=== PATIENT | female | born 1975 | race Caucasian/White ===

== ENCOUNTER 2018-09-22 17:26 | Inpatient (IN) ==
[2018-09-22] MEDS ORDERED: methylPREDNISolone SOD SUC 40 MG/1 ML VIAL IV STA (18:12)
[2018-09-22] MEDS ORDERED: SODIUM CHLORIDE 0.9% 1,000 ML IV STA (18:12)
[2018-09-22] MEDS ORDERED: ALBUTEROL/IPRATROPIUM 3 ML NEB RESP TX STA (18:12)
[2018-09-22 18:51] LABS: Basophils # 0.1 10*3/uL (0.0-0.2); Basophils % 0.4 % (0.0-0.8); Eosinophils # 0.1 10*3/uL (0.0-0.87); Eosinophils % 0.4 % (0.00-10.9); Hematocrit 38.1 VOL% (35.7-47.0); Hemoglobin 12.5 GM/DL (12.0-16.0); Immature Granulocytes % 2.2 %; Immature Granulocytes Absolute 0.63 #; Lymphocytes # 1.1 10*3/uL (1.4-4.0); Mean Corpuscular HGB Conc 32.8 GM/DL (32-36); Mean Corpuscular Hemoglobin 30 PG (27-34); Mean Platelet Volume 10.9 FL (9.6-12.0); Monocytes # 0.9 10*3/uL (0.11-0.8); Monocytes % 3.1 % (1.7-12.7); Neutrophils # 25.5 10*3/uL (1.4-7.4); Neutrophils % 89.9 % (38.7-73.9); Platelet Count 260 T/CUMM (130-400); Red Blood Count 4.14 MC/CUMM (3.8-5.5); Red Cell Distribution Width 13.2 % (9.3-17.3); White Blood Count 28.4 T/CUMM (4-12)
[2018-09-22] MEDS ORDERED: methylPREDNISolone SOD SUC 125 MG/2 ML VIAL ONE (18:58)
[2018-09-22 19:03] LABS: Apearance,Urine CLEAR (Clear); Bilirubin,Urine Negative (Negative); Blood, Urine Moderate mg/dL (Negative); Glucose,Urine (UA) Negative (Negative); Ketones,Urine Negative (Negative); Mucus,Urine Occasional /LPF (Occasional); Nitrite,Urine Negative (Negative); Protein,Urine 100 MG/DL; RBC,Urine 3 /HPF (0-4); Squamous Epithelial Cell,Urine Occasional /HPF (0-10); Urine Color Yellow (Yellow); Urine Specific Gravity 1.025 (1.001-1.035); WBC,Urine 7 /HPF (0-6)
[2018-09-22 19:16] LABS: Albumin 2.8 G/DL (3.4-5.0); Bilirubin,Total 0.4 MG/DL (0.2-1.0); Calcium 8.9 MG/DL (8.5-10.1); Osmolality,Calculated 272.1 MOS/KG (273-304); Potassium 3.2 MMOL/L (3.5-5.1); Total Protein 7.6 G/DL (6.4-8.3)
[2018-09-22] MEDS ORDERED: PIPERACILLIN/TAZOBACTAM 3,375 MG in SODIUM CHLORIDE 0.9% 100 ML IV ONE (19:27)
[2018-09-22] MEDS ORDERED: POTASSIUM CHLORIDE 20 MEQ TABLET PO STA (19:28)
[2018-09-22 19:40] LABS: Band Neutrophils 3 % (0-10); Lymphocytes 2 % (20-55); Platelet Estimate Normal; Segmented Neutrophils 94 % (50-85); Total Cells Counted 100
[2018-09-22] MEDS ORDERED: MORPHINE 4 MG/1 ML VIAL IV STA (20:22)
[2018-09-22] MEDS ORDERED: ONDANSETRON 4 MG/2 ML VIAL IV STA (20:22)
[2018-09-22] MEDS ORDERED: ACETAMINOPHEN 325 MG TABLET PO PRN (23:00)
[2018-09-23] MEDS: ALBUTEROL/IPRATROPIUM 3 ML NEB RESP TX SCH ×4 (01:30→19:51)
[2018-09-23] MEDS: MELATONIN 3 MG TABLET PO PRN ×2 (01:54→20:29)
[2018-09-23] MEDS: SODIUM CHLORIDE 0.9% 1,000 ML IV SCH ×3 (02:59→15:22)
[2018-09-23] MEDS: AZITHROMYCIN INJ 500 MG in SODIUM CHLORIDE 0.9% 250 ML IV SCH (02:59)
[2018-09-23 05:42] LABS: Barbiturates Screen,Urine Negative (Negative); Benzodiazepines Screen,Urine Negative (Negative); Cannabinoid Screen,Urine Positive (Negative); Opiate Screen,Urine Negative (Negative); Phencyclidine Screen,Urine Negative (Negative)
[2018-09-23 06:11] LABS: Basophils % 0.1 % (0.0-0.8); Hematocrit 34.6 VOL% (35.7-47.0); Hemoglobin 11.2 GM/DL (12.0-16.0); Immature Granulocytes % 2.5 %; Immature Granulocytes Absolute 0.55 #; Lymphocytes # 0.3 10*3/uL (1.4-4.0); Lymphocytes % 1.5 % (21.3-54.2); Mean Corpuscular HGB Conc 32.4 GM/DL (32-36); Mean Corpuscular Hemoglobin 30 PG (27-34); Mean Platelet Volume 12.1 FL (9.6-12.0); Monocytes # 0.4 10*3/uL (0.11-0.8); Monocytes % 1.7 % (1.7-12.7); Neutrophils # 20.9 10*3/uL (1.4-7.4); Neutrophils % 94.2 % (38.7-73.9); Platelet Count 238 T/CUMM (130-400); Red Blood Count 3.72 MC/CUMM (3.8-5.5); Red Cell Distribution Width 13.6 % (9.3-17.3); White Blood Count 22.2 T/CUMM (4-12)
[2018-09-23] MEDS ORDERED: ONDANSETRON 4 MG/2 ML VIAL IV PRN (06:26)
[2018-09-23 06:37] LABS: Band Neutrophils 2 % (0-10); Hypochromasia 1+; Lymphocytes 1 % (20-55); Platelet Estimate Adequate; Segmented Neutrophils 93 % (50-85); Total Cells Counted 100
[2018-09-23 06:48] LABS: Alanine Aminotransferase 86 U/L (13-56); Albumin 2.4 G/DL (3.4-5.0); Alkaline Phosphatase 149 U/L (45-117); Aspartate Amino Transferase 59 U/L (0-37); Bilirubin,Total < 0.39 MG/DL (0.2-1.0); Blood Urea Nitrogen 12 MG/DL (7-18); Calcium 8.5 MG/DL (8.5-10.1); Glucose 373 MG/DL (74-106); Osmolality,Calculated 287.8 MOS/KG (273-304); Potassium 3.9 MMOL/L (3.5-5.1); Sodium 137 MMOL/L (136-145); Total Protein 6.9 G/DL (6.4-8.3)
[2018-09-23] MEDS ORDERED: PANTOPRAZOLE 40 MG TABLET PO SCH (09:00)
[2018-09-23] MEDS: ENOXAPARIN 40 MG/0.4 ML SYRINGE SUBCUT SCH (09:08)
[2018-09-23] MEDS: NICOTINE 21 MG/24 HR PATCH TRANSDERM SCH (09:08)
[2018-09-23] MEDS: BUDESONIDE/FORMOTEROL 160-4.5 INHALER 6 GM INH SCH ×2 (09:08→20:28)
[2018-09-23] MEDS: predniSONE 20 MG TABLET PO SCH (09:08)
[2018-09-23] MEDS ORDERED: GLUCAGON 1 MG VIAL IM PRN (10:16)
[2018-09-23] MEDS ORDERED: DEXTROSE 50% 25 GM/50 ML SYRINGE IV PRN (10:16)
[2018-09-23] MEDS: oxyCODONE IR 5 MG TABLET PO PRN ×2 (11:15→20:29)
[2018-09-23] MEDS: PIPERACILLIN/TAZOBACTAM 3,375 MG in SODIUM CHLORIDE 0.9% 100 ML IV SCH ×2 (11:16→18:03)
[2018-09-23] MEDS: INSULIN LISPRO 100 UNIT/ML SUBCUT SCH ×3 (12:03→20:46)
[2018-09-24] MEDS: AZITHROMYCIN INJ 500 MG in SODIUM CHLORIDE 0.9% 250 ML IV SCH (00:31)
[2018-09-24] MEDS: ALBUTEROL/IPRATROPIUM 3 ML NEB RESP TX SCH ×4 (01:21→19:28)
[2018-09-24] MEDS: PIPERACILLIN/TAZOBACTAM 3,375 MG in SODIUM CHLORIDE 0.9% 100 ML IV SCH ×3 (01:50→17:51)
[2018-09-24] MEDS: TEMAZEPAM 15 MG CAPSULE PO PRN ×2 (02:04→20:40)
[2018-09-24 05:16] LABS: Basophils # 0.1 10*3/uL (0.0-0.2); Basophils % 0.3 % (0.0-0.8); Immature Granulocytes % 1.5 %; Immature Granulocytes Absolute 0.35 #; Lymphocytes # 1.1 10*3/uL (1.4-4.0); Lymphocytes % 4.9 % (21.3-54.2); Mean Corpuscular HGB Conc 32.3 GM/DL (32-36); Mean Corpuscular Hemoglobin 31 PG (27-34); Mean Corpuscular Volume 95.1 FL (87-102); Mean Platelet Volume 11.7 FL (9.6-12.0); Monocytes # 1.1 10*3/uL (0.11-0.8); Monocytes % 4.6 % (1.7-12.7); Neutrophils # 20.6 10*3/uL (1.4-7.4); Neutrophils % 88.7 % (38.7-73.9); Platelet Count 248 T/CUMM (130-400); Red Blood Count 3.26 MC/CUMM (3.8-5.5); Red Cell Distribution Width 13.8 % (9.3-17.3); White Blood Count 23.2 T/CUMM (4-12)
[2018-09-24 05:28] LABS: Albumin 2.2 G/DL (3.4-5.0); Bilirubin,Total 0.6 MG/DL (0.2-1.0); Calcium 8.4 MG/DL (8.5-10.1); Osmolality,Calculated 281.4 MOS/KG (273-304); Potassium 3.9 MMOL/L (3.5-5.1); Total Protein 6.1 G/DL (6.4-8.3)
[2018-09-24 05:46] LABS: Lymphocytes 3 % (20-55); Segmented Neutrophils 93 % (50-85); Total Cells Counted 100
[2018-09-24 05:49] LABS: Hypochromasia 1+; Platelet Estimate Normal
[2018-09-24 06:27] LABS: Hepatitis A Ab IgM Quant 0.09 Index; Hepatitis A Ab IgM Result Negative (Negative); Hepatitis B Core IgM Quant 0.18 Index; Hepatitis B Core IgM Result Negative (Negative); Hepatitis B Surface Ag Result Negative (Negative); Hepatitis C Virus Ab Quant < 0.02 Index; Hepatitis C Virus Ab Result Negative (Negative)
[2018-09-24] MEDS: INSULIN LISPRO 100 UNIT/ML SUBCUT SCH ×4 (08:14→20:57)
[2018-09-24] MEDS: SODIUM CHLORIDE 0.9% 1,000 ML IV SCH ×2 (08:14→10:20)
[2018-09-24] MEDS: ENOXAPARIN 40 MG/0.4 ML SYRINGE SUBCUT SCH (10:17)
[2018-09-24] MEDS: oxyCODONE IR 5 MG TABLET PO PRN ×2 (10:18→17:51)
[2018-09-24] MEDS: predniSONE 20 MG TABLET PO SCH (10:20)
[2018-09-24] MEDS: NICOTINE 21 MG/24 HR PATCH TRANSDERM SCH (10:21)
[2018-09-24] MEDS: BUDESONIDE/FORMOTEROL 160-4.5 INHALER 6 GM INH SCH ×2 (10:25→20:41)
[2018-09-24] MEDS ORDERED: cefTRIAXone 1,000 MG in SYRINGE 1 EACH IV SCH (11:00)
[2018-09-24] MEDS: methylPREDNISolone SOD SUC 40 MG/1 ML VIAL IV SCH ×2 (12:45→20:36)
[2018-09-25] MEDS: ALBUTEROL/IPRATROPIUM 3 ML NEB RESP TX SCH ×5 (00:18→23:55)
[2018-09-25] MEDS: PIPERACILLIN/TAZOBACTAM 3,375 MG in SODIUM CHLORIDE 0.9% 100 ML IV SCH ×2 (02:07→09:52)
[2018-09-25] MEDS: methylPREDNISolone SOD SUC 40 MG/1 ML VIAL IV SCH ×2 (03:50→13:55)
[2018-09-25 04:38] LABS: Basophils # 0.1 10*3/uL (0.0-0.2); Basophils % 0.7 % (0.0-0.8); Hematocrit 34.2 VOL% (35.7-47.0); Hemoglobin 10.8 GM/DL (12.0-16.0); Immature Granulocytes % 6.1 %; Immature Granulocytes Absolute 0.74 #; Lymphocytes % 8.3 % (21.3-54.2); Mean Corpuscular HGB Conc 31.6 GM/DL (32-36); Mean Corpuscular Hemoglobin 30 PG (27-34); Mean Corpuscular Volume 95.3 FL (87-102); Mean Platelet Volume 11.6 FL (9.6-12.0); Monocytes # 0.5 10*3/uL (0.11-0.8); Monocytes % 4.3 % (1.7-12.7); Neutrophils # 9.8 10*3/uL (1.4-7.4); Neutrophils % 80.6 % (38.7-73.9); Platelet Count 287 T/CUMM (130-400); Red Blood Count 3.59 MC/CUMM (3.8-5.5); Red Cell Distribution Width 13.8 % (9.3-17.3); White Blood Count 12.1 T/CUMM (4-12)
[2018-09-25 04:39] LABS: Calcium 8.4 MG/DL (8.5-10.1); Osmolality,Calculated 283.5 MOS/KG (273-304); Potassium 4.2 MMOL/L (3.5-5.1)
[2018-09-25] MEDS: SODIUM CHLORIDE 0.9% 1,000 ML IV SCH (05:55)
[2018-09-25 06:17] LABS: Lymphocytes 2 % (20-55); Platelet Estimate Normal; Polychromasia Slight; Segmented Neutrophils 97 % (50-85); Total Cells Counted 100
[2018-09-25] MEDS ORDERED: AZITHROMYCIN 250 MG TABLET PO SCH (09:00)
[2018-09-25] MEDS: INSULIN LISPRO 100 UNIT/ML SUBCUT SCH ×4 (09:45→21:50)
[2018-09-25] MEDS: NICOTINE 21 MG/24 HR PATCH TRANSDERM SCH (09:49)
[2018-09-25] MEDS: BUDESONIDE/FORMOTEROL 160-4.5 INHALER 6 GM INH SCH ×2 (09:49→21:49)
[2018-09-25] MEDS: ENOXAPARIN 40 MG/0.4 ML SYRINGE SUBCUT SCH (09:49)
[2018-09-25] MEDS: oxyCODONE IR 5 MG TABLET PO PRN ×3 (09:59→23:04)
[2018-09-25] MEDS: ALPRAZolam 0.25 MG TABLET PO PRN (10:25)
[2018-09-25] MEDS: LEVOFLOXACIN INJ 750 MG in PREMIX 1 EACH IV SCH (13:54)
[2018-09-25] MEDS: buPROPion SR 100 MG TABLET PO SCH ×2 (13:54→21:48)
[2018-09-25] MEDS ORDERED: methylPREDNISolone SOD SUC 40 MG/1 ML VIAL IV SCH (21:00)
[2018-09-25] MEDS: TEMAZEPAM 15 MG CAPSULE PO PRN (21:47)
[2018-09-26 04:52] LABS: Basophils # 0.1 10*3/uL (0.0-0.2); Basophils % 0.8 % (0.0-0.8); Eosinophils % 0.1 % (0.00-10.9); Hematocrit 35.7 VOL% (35.7-47.0); Hemoglobin 11.4 GM/DL (12.0-16.0); Immature Granulocytes % 9.1 %; Immature Granulocytes Absolute 1.58 #; Lymphocytes # 2.3 10*3/uL (1.4-4.0); Mean Corpuscular HGB Conc 31.9 GM/DL (32-36); Mean Corpuscular Hemoglobin 30 PG (27-34); Mean Corpuscular Volume 93.7 FL (87-102); Mean Platelet Volume 11.2 FL (9.6-12.0); Monocytes # 1.9 10*3/uL (0.11-0.8); Monocytes % 11.1 % (1.7-12.7); Neutrophils # 11.5 10*3/uL (1.4-7.4); Neutrophils % 65.9 % (38.7-73.9); Platelet Count 303 T/CUMM (130-400); Red Blood Count 3.81 MC/CUMM (3.8-5.5); Red Cell Distribution Width 13.6 % (9.3-17.3); White Blood Count 17.5 T/CUMM (4-12)
[2018-09-26 06:00] LABS: Hypochromasia 1+; Lymphocytes 9 % (20-55); Metamyelocytes 1 %; Platelet Estimate Normal; Segmented Neutrophils 89 % (50-85); Total Cells Counted 100
[2018-09-26] MEDS: oxyCODONE IR 5 MG TABLET PO PRN ×3 (06:24→21:35)
[2018-09-26] MEDS: INSULIN LISPRO 100 UNIT/ML SUBCUT SCH ×4 (08:09→21:34)
[2018-09-26] MEDS: ALBUTEROL/IPRATROPIUM 3 ML NEB RESP TX SCH ×3 (08:10→19:28)
[2018-09-26] MEDS: LEVOFLOXACIN INJ 750 MG in PREMIX 1 EACH IV SCH (09:23)
[2018-09-26] MEDS: buPROPion SR 100 MG TABLET PO SCH ×2 (09:23→20:05)
[2018-09-26] MEDS: BUDESONIDE/FORMOTEROL 160-4.5 INHALER 6 GM INH SCH ×2 (09:23→20:05)
[2018-09-26] MEDS: ENOXAPARIN 40 MG/0.4 ML SYRINGE SUBCUT SCH (09:23)
[2018-09-26] MEDS: ALPRAZolam 0.25 MG TABLET PO PRN ×3 (09:24→20:05)
[2018-09-26] MEDS: NICOTINE 21 MG/24 HR PATCH TRANSDERM SCH (09:24)
[2018-09-26] MEDS: predniSONE 20 MG TABLET PO SCH (09:24)
[2018-09-26] MEDS: SODIUM CHLORIDE 0.9% 1,000 ML IV SCH ×2 (11:27→15:48)
[2018-09-26] MEDS: TEMAZEPAM 15 MG CAPSULE PO PRN (21:34)
[2018-09-27] MEDS: ALBUTEROL/IPRATROPIUM 3 ML NEB RESP TX SCH ×2 (01:30→06:47)
[2018-09-27 08:11] VITALS: BP 140/98
[2018-09-27] MEDS: INSULIN LISPRO 100 UNIT/ML SUBCUT SCH (08:19)
[2018-09-27] MEDS: buPROPion SR 100 MG TABLET PO SCH (08:20)
[2018-09-27] MEDS: oxyCODONE IR 5 MG TABLET PO PRN (08:20)
[2018-09-27] MEDS: ALPRAZolam 0.25 MG TABLET PO PRN (08:20)
[2018-09-27] MEDS: predniSONE 20 MG TABLET PO SCH (08:21)
[2018-09-27] MEDS: ENOXAPARIN 40 MG/0.4 ML SYRINGE SUBCUT SCH (08:22)
[2018-09-27] MEDS: BUDESONIDE/FORMOTEROL 160-4.5 INHALER 6 GM INH SCH (08:22)
[2018-09-27] MEDS: NICOTINE 21 MG/24 HR PATCH TRANSDERM SCH (08:22)
[2018-09-27] MEDS: LEVOFLOXACIN INJ 750 MG in PREMIX 1 EACH IV SCH (08:35)
[2018-09-27] MEDS ORDERED: NYSTATIN POWDER 15 GM BOTTLE TOP SCH (09:00)
[2018-09-27] MEDS ORDERED: NYSTATIN CREAM 15 GM TUBE TOP SCH (09:00)
== END 2018-09-27 10:50 | disposition home or self-care (01) | DRG 194 ==
LOC: EDUNIT# → EDBD → N.ED 17:26 → SUATTDRO 22:58 → N.EDINP 22:58 → N.2E 09-23 00:34
PROVIDERS: ADMIT Internal Medicine; ATTEND Hospitalist

== ENCOUNTER 2022-06-03 12:15 | Observation (INO) ==
[2022-06-03] MEDS ORDERED: HYDROmorphone 1 MG/1 ML SYRINGE ONE (12:38)
[2022-06-03] MEDS ORDERED: HYDROmorphone 1 MG/1 ML SYRINGE IV STA (12:49)
[2022-06-03] MEDS ORDERED: propofoL 200 MG/20 ML VIAL IV ONE ×2 (13:03→17:38)
[2022-06-03] MEDS ORDERED: ceFAZolin 2,000 MG/50 ML DUPLEX IV ONE ×2 (15:00→17:46)
[2022-06-03] MEDS ORDERED: DIPH/TET/ACEL PERT BOOSTER VACCINE 0.5 ML VIAL IM ONE (15:00)
[2022-06-03 16:12] LABS: Basophils # 0.1 10*3/uL (0.0-0.2); Basophils % 0.6 % (0.0-0.8); Eosinophils # 0.3 10*3/uL (0.0-0.87); Eosinophils % 2.2 % (0.00-10.9); Hematocrit 43.3 VOL% (35.7-47.0); Immature Granulocytes % 0.4 %; Immature Granulocytes Absolute 0.05 #; Lymphocytes # 1.9 10*3/uL (1.4-4.0); Lymphocytes % 16.8 % (21.3-54.2); Mean Corpuscular HGB Conc 32.3 GM/DL (32-36); Mean Corpuscular Volume 96.7 FL (87-102); Mean Platelet Volume 9.9 FL (9.6-12.0); Monocytes # 0.5 10*3/uL (0.11-0.8); Monocytes % 4.1 % (1.7-12.7); Neutrophils % 75.9 % (38.7-73.9); Platelet Count 340 T/CUMM (130-400); Red Blood Count 4.48 MC/CUMM (3.8-5.5); Red Cell Distribution Width 13.8 % (9.3-17.3); White Blood Count 11.3 T/CUMM (4-12)
[2022-06-03 16:33] LABS: Calcium 8.8 MG/DL (8.5-10.1); Osmolality,Calculated 274.7 MOS/KG (273-304); Potassium 4.3 MMOL/L (3.5-5.1)
[2022-06-03] MEDS ORDERED: HYDROmorphone 1 MG/1 ML SYRINGE IV PRN (17:03)
[2022-06-03] MEDS ORDERED: MEPERIDINE 25 MG/1 ML VIAL IV PRN (17:03)
[2022-06-03] MEDS ORDERED: diphenhydrAMINE 50 MG/1 ML VIAL IV PRN (17:03)
[2022-06-03] MEDS ORDERED: ONDANSETRON 4 MG/2 ML VIAL IV PRN (17:03)
[2022-06-03] MEDS ORDERED: PROMETHAZINE INJ 25 MG in SODIUM CHLORIDE 0.9% 50 ML IV PRN (17:03)
[2022-06-03] MEDS ORDERED: MIDAZOLAM 2 MG/2 ML VIAL ONE ×2 (17:37)
[2022-06-03] MEDS ORDERED: LIDOCAINE 2% 5 ML VIAL ONE (17:38)
[2022-06-03] MEDS ORDERED: fentaNYL 100 MCG/2 ML VIAL ONE (17:38)
[2022-06-03] MEDS ORDERED: SUCCINYLCHOLINE 200 MG/10 ML VIAL ONE (17:42)
[2022-06-03] MEDS ORDERED: ONDANSETRON 4 MG/2 ML VIAL ONE (17:43)
[2022-06-03] MEDS ORDERED: MAGNESIUM HYDROXIDE SUSP 30 ML UDCUP PO PRN (17:46)
[2022-06-03] MEDS ORDERED: LACTATED RINGERS 1,000 ML IV ONE (17:46)
[2022-06-03] MEDS ORDERED: BUPIVACAINE MPF 0.25% 10 ML VIAL ONE (18:05)
[2022-06-03] MEDS ORDERED: LIDOCAINE 1% 5 ML VIAL ONE (18:05)
[2022-06-03] MEDS ORDERED: PHENYLEPHRINE 1 MG/10 ML SYRINGE IV ONE (18:11)
[2022-06-03] MEDS ORDERED: DEXAMETHASONE 4 MG/1 ML VIAL ONE (18:43)
[2022-06-03] MEDS ORDERED: SEVOFLURANE 1 UNIT/15 MINUTE INH ONE (18:48)
[2022-06-03 20:03] LABS: Alanine Aminotransferase 15 U/L (13-56); Albumin 3.3 G/DL (3.4-5.0); Alkaline Phosphatase 89 U/L (45-117); Aspartate Amino Transferase 10 U/L (0-37); Bilirubin,Total < 0.39 MG/DL (0.20-1.00); Blood Urea Nitrogen 10 MG/DL (7-18); Calcium 8.4 MG/DL (8.5-10.1); Carbon Dioxide 28 MMOL/L (21-32); Chloride 107 MMOL/L (98-107); Glucose 99 MG/DL (74-106); Osmolality,Calculated 273.7 MOS/KG (273-304); Potassium 4.2 MMOL/L (3.5-5.1); Sodium 138 MMOL/L (136-145); Total Protein 6.5 G/DL (6.4-8.2)
[2022-06-03] MEDS: MORPHINE 2 MG/1 ML SYRINGE IV PRN (21:10)
[2022-06-03] MEDS: ceFAZolin 2,000 MG/50 ML DUPLEX IV SCH (23:46)
[2022-06-04] MEDS ORDERED: ceFAZolin 2,000 MG/50 ML DUPLEX IV ONE
[2022-06-04] MEDS: MORPHINE 2 MG/1 ML SYRINGE IV PRN (02:05)
[2022-06-04] MEDS: ceFAZolin 2,000 MG/50 ML DUPLEX IV SCH (07:51)
[2022-06-04 08:13] VITALS: BP 135/81
[2022-06-04] MEDS ORDERED: PANTOPRAZOLE 40 MG TABLET PO SCH (09:00)
== END 2022-06-04 12:41 | disposition home or self-care (01) ==
LOC: N.EDINP 12:15 → N.ED 12:15 → N.2W 17:30
PROVIDERS: ADMIT Orthopaedic Surgery; ATTEND Orthopaedic Surgery